=== PATIENT | male | born 1980 | race African-American/Black ===

== ENCOUNTER 2016-12-05 07:24 | Emergency (ER) | payer MEDICAID ==
[2016-12-05] MEDS ORDERED: NITROGLYCERIN SL TABS 0.4 MG TAB SUBLINGUAL STA (07:48)
--- NOTE | 2016-12-05 07:55 | ED ---
Chest Pain HPI - General Chief Complaint: Chest Pain Stated Complaint: chest pain,dizzy Time Seen by Provider: 12/05/16 07:34 Source: patient, RN notes reviewed Mode of arrival: wheelchair Limitations: no limitations - History of Present Illness Initial Comments: This is a 36-year-old male with a history of hypertension and migraine headaches and he was younger who states he had the onset while at work was at around 8 PM of some chest pain and left-sided with crampy in his left arm. He also has some slight dizziness and also had a headache behind his left eye. He states pain is currently 3/10 severity nothing makes it better nothing makes it worse she's not had pain like that before. He isn't any fevers chills cough or other symptoms he is a smoker. He has no personal history of heart disease and no family history of early heart disease. MD Complaint: chest pain - Related Data Previous Rx's Medication Instructions Recorded Azithromycin [Zithromax Z-pack] 250 mg PO DIRECTED #6 tab 12/05/16 Ibuprofen [Motrin] 800 mg PO Q6HR PRN #20 tab 12/05/16 Allergies Allergy/AdvReac Type Severity Reaction Status Date / Time aspirin Allergy Anaphylaxis Verified 12/05/16 08:01 chocolate flavor Allergy Rash/Hives Verified 12/05/16 08:01 Review of Systems ROS Statement: Those systems with pertinent positive or pertinent negative responses have been documented in the HPI. ROS Other: All systems not noted in ROS Statement are negative. EKG Findings - EKG Results: EKG: interpreted by ERMD, sinus rhythm (Sinus rhythm with a rate of 93. Arrival 166 QRS duration 80 QT/QTC of 320/407 this is compared with one done last night on the floor at 12:15 AM this appears be a normal EKG.), normal axis , normal QRS, normal ST/T, no acute changes Past Medical History Past Medical History: Asthma, Hypertension Additional Past Medical History / Comment(s): "past epilipsy" History of Any Multi-Drug Resistant Organisms: None Reported Past Surgical History: Appendectomy, Orthopedic Surgery Past Psychological History: No Psychological Hx Reported Smoking Status: Current every day smoker Past Alcohol Use History: Rare Past Drug Use History: None Reported General Exam - General Exam Comments Initial Comments: This is a well-developed well-nourished awake alert oriented 3 male Limitations: no limitations General appearance: alert, in no apparent distress Head exam: Present: atraumatic, normocephalic, normal inspection Eye exam: Present: normal appearance, PERRL, EOMI. Absent: scleral icterus, conjunctival injection, periorbital swelling ENT exam: Present: normal exam, mucous membranes moist Neck exam: Present: normal inspection. Absent: tenderness, meningismus, lymphadenopathy Respiratory exam: Present: normal lung sounds bilaterally. Absent: respiratory distress, wheezes, rales, rhonchi, stridor Cardiovascular Exam: Present: regular rate, normal rhythm, normal heart sounds. Absent: systolic murmur, diastolic murmur, rubs, gallop, clicks GI/Abdominal exam: Present: soft, normal bowel sounds. Absent: distended, tenderness, guarding, rebound, rigid Extremities exam: Present: normal inspection, full ROM, normal capillary refill. Absent: tenderness, pedal edema, joint swelling, calf tenderness Back exam: Present: normal inspection Neurological exam: Present: alert, oriented X3, CN II-XII intact Psychiatric exam: Present: normal affect, normal mood Skin exam: Present: warm, dry, intact, normal color. Absent: rash Course Vital Signs 12/05/16 12/05/16 12/05/16 07:27 08:21 08:27 Temperature 98.3 F Pulse Rate 100 94 92 Respiratory 20 18 18 Rate Blood Pressure 139/80 119/69 121/72 O2 Sat by Pulse 99 100 96 Oximetry 12/05/16 12/05/16 09:09 09:53 Temperature 99.3 F 97.9 F Pulse Rate 82 86 Respiratory 16 18 Rate Blood Pressure 122/78 124/77 O2 Sat by Pulse 98 99 Oximetry - Reevaluation(s) Reevaluation #1: 12/05/16 09:56 Did discuss smoking cessation and need to quit in the risk factors this lasted 3.2 minutes Chest Pain MDM - MDM I did review the x-ray shows evidence a left upper lobe infiltrate. Patient is feeling improved I did discuss [employer] him presentation is consistent with atypical chest pain secondary to his pneumonia. Patient be discharged on his cardiac Disposition Clinical Impression: Left upper lobe pneumonia, Atypical chest pain Disposition: HOME SELF-CARE Condition: Good Instructions: Chest Pain (ED), Bacterial Pneumonia (ED) Prescriptions: Azithromycin [Zithromax Z-pack] 250 mg PO DIRECTED #6 tab Ibuprofen [Motrin] 800 mg PO Q6HR PRN #20 tab PRN Reason: Pain
[2016-12-05 08:01] LABS: Basophils # (A) 0.1 k/uL (0-0.2); Basophils % (A) 1 %; CH 26.4; CHCM 33.4; Eosinophils # (A) 0.1 k/uL (0-0.7); Eosinophils % (A) 2 %; HCT 46.2 % (39.0-53.0); HDW 2.64; HGB 15.2 gm/dL (13.0-17.5); Luc # (Auto) 0.26; Luc % (Auto) 4; Lymphocytes # (A) 1.1 k/uL (1.0-4.8); Lymphocytes % (A) 17 %; MCH 26.1 pg (25.0-35.0); MCHC 32.9 g/dL (31.0-37.0); MCV 79.5 fL (80.0-100.0); Mean Platelet Volume 8.2; Monocytes # (A) 0.6 k/uL (0-1.0); Monocytes % (A) 10 %; Neutrophils # (A) 4.2 k/uL (1.3-7.7); Neutrophils % (A) 66 %; RBC 5.81 m/uL (4.30-5.90); RDW 12.8 % (11.5-15.5); WBC 6.3 k/uL (3.8-10.6); WBC (Perox) 6.35
--- NOTE | 2016-12-05 08:05 | XR ---
EXAMINATION TYPE: XR chest 2V DATE OF EXAM: 12/05/2016 8:01 AM HISTORY: Chest Pain. REFERENCE: NONE. FINDINGS: There is perihilar infiltrate in the left upper lobe. The lungs are otherwise clear. Pleura l spaces are clear. Heart size is normal. IMPRESSION: LEFT UPPER LOBE PNEUMONIA.
[2016-12-05 08:11] LABS: ALT 83 U/L (21-72); AST 43 U/L (17-59); Alkaline Phosphatase 73 U/L (38-126); Amylase 48 U/L (30-110); Anion Gap 14 mmol/L; Blood Urea Nitrogen 15 mg/dL (9-20); Calcium 9.8 mg/dL (8.4-10.2); Carbon Dioxide 28 mmol/L (22-30); Chloride 99 mmol/L (98-107); Glucose 103 mg/dL (74-99); Magnesium 1.8 mg/dL (1.6-2.3); Non-African American GFR(MDRD) >60 (>60 ml/min/1.73 sqM); Potassium 4.6 mmol/L (3.5-5.1); Sodium 141 mmol/L (137-145); Total Bilirubin 0.8 mg/dL (0.2-1.3); Total Protein 7.9 g/dL (6.3-8.2)
[2016-12-05 08:17] LABS: INR 1.1 (<1.1); Partial Thromboplastin Time 25.9 sec (22.0-30.0)
[2016-12-05 08:29] LABS: Creatine Kinase 349 U/L (55-170)
[2016-12-05 08:41] LABS: Creatine Kinase MB 0.9 ng/mL (0.0-2.4); Troponin I <0.012 ng/mL (0.000-0.034)
[2016-12-05] MEDS ORDERED: AZITHROMYCIN 500 MG TAB PO STA (09:50)
[2016-12-05 09:54] VITALS: BP 124/77; PULSE 86; RESP 18; TEMP 97.9
== END 2016-12-05 10:24 | disposition home or self-care (01) ==
LOC: EC 07:24
DX: J15.9 Unspecified bacterial pneumonia (principal); I10 Essential (primary) hypertension; J45.909 Unspecified asthma, uncomplicated; F17.200 Nicotine dependence, unspecified, uncomplicated; Z79.82 Long term (current) use of aspirin; Z88.6 Allergy status to analgesic agent; Z91.018 Allergy to other foods
CPT/HCPCS: 36415; 71020; 80053; 82150; 82550; 82553; 83690; 83735; 84484; 85025; 85379; 85610; 85730; 93005; 99285

== ENCOUNTER → 2020-07-04 | Outpatient (CLI) | payer MEDICAID ==
[2020-07-04 09:24] LABS: HCT 47.1 % (39.0-53.0); HGB 15.3 gm/dL (13.0-17.5); MCHC 32.6 g/dL (31.0-37.0); Mean Platelet Volume 8.9; Platelet Count 167 k/uL (150-450); RBC 5.67 m/uL (4.30-5.90); RDW 13.1 % (11.5-15.5); WBC 6.5 k/uL (3.8-10.6)
[2020-07-04 18:43] LABS: African American GFR (CKD) 110.2 (60.0-200.0); Albumin 4.5 g/dL (3.80-4.90); Albumin/Globulin Ratio 2.37 (1.60-3.17); Anion Gap 8.3 mmol/L (4.00-12.00); Calcium 9.2 mg/dL (8.7-10.3); Carbon Dioxide 22.7 mmol/L (21.6-31.8); Chol/HDL Ratio 4.39; Globulin 1.9 g/dL (1.6-3.3); Non-African American GFR(CKD) 95.1 (60.0-200.0); Potassium 4.4 mmol/L (3.5-5.5); Total Bilirubin 0.6 mg/dL (0.3-1.2); Total Protein 6.4 g/dL (6.2-8.2)
== END | disposition home or self-care (01) ==
LOC: LABWHC1 08:03
PROVIDERS: ATTEND Internal Medicine
DX: Z00.00 Encounter for general adult medical examination without abnormal findings (principal); Z13.21 Encounter for screening for nutritional disorder
CPT/HCPCS: 36415; 80053; 80061; 85027

== ENCOUNTER → 2022-09-29 | Outpatient (CLI) | payer MEDICAID ==
[2022-09-29 14:17] LABS: HCT 43.5 % (39.6-50.0); HGB 14.4 g/dL (13.0-17.0); MCH 25.7 pg (27.0-32.0); MCHC 33.1 g/dL (32.0-37.0); MCV 77.7 fL (80.0-97.0); Mean Platelet Volume 11.6 fL (9.5-12.2); NRBC Per 100 WBC 0 /100 WBCS (0.0-0.0); Platelet Count 163 X 10*3/uL (140-440); RDW 13.1 % (11.5-14.5); WBC 6.61 X 10*3/uL (4.50-10.00)
[2022-09-29 14:46] LABS: ALT 124 U/L (10-49); AST 60 U/L (14-35); African American GFR (CKD) 123.4 (60.0-200.0); Albumin 4.6 g/dL (3.8-4.9); Albumin/Globulin Ratio 2.19 (1.60-3.17); Alkaline Phosphatase 73 U/L (41-126); BUN/Creat Ratio 16.67 Ratio (12.00-20.00); Calcium 9.4 mg/dL (8.7-10.3); Carbon Dioxide 25.4 mmol/L (20.0-27.5); Chloride 101 mmol/L (96-109); Chol/HDL Ratio 5.12 Ratio; Globulin 2.1 g/dL (1.6-3.3); Glucose 107 mg/dL (70-110); LDL Cholesterol,Calculated 136.3 mg/dL (0.0-131.0); Non-African American GFR(CKD) 106.5 (60.0-200.0); Potassium 4.2 mmol/L (3.5-5.5); Sodium 137 mmol/L (135-145); Total Protein 6.7 g/dL (6.2-8.2)
== END | disposition home or self-care (01) ==
LOC: LABWHC1 07:43
PROVIDERS: ATTEND Nurse Practitioner Family
DX: Z13.220 Encounter for screening for lipoid disorders (principal); E66.9 Obesity, unspecified; E55.9 Vitamin D deficiency, unspecified; R73.01 Impaired fasting glucose
CPT/HCPCS: 36415; 80053; 80061; 82306; 83036; 84443; 85027

== ENCOUNTER → 2023-02-02 | Outpatient (CLI) | payer MEDICAID ==
[2023-02-02 10:58] LABS: Basophils # (A) 0.02 X 10*3/uL (0.00-0.10); Basophils % (A) 0.4 %; Eosinophils # (A) 0.15 X 10*3/uL (0.04-0.35); Eosinophils % (A) 2.7 %; HCT 45.6 % (39.6-50.0); HGB 14.5 g/dL (13.0-17.0); Immature Grans, Automated 0.4 %; Lymphocytes % (A) 32.1 %; MCH 25.9 pg (27.0-32.0); MCHC 31.8 g/dL (32.0-37.0); MCV 81.6 fL (80.0-97.0); Monocytes # (A) 0.48 X 10*3/uL (0.20-1.00); Monocytes % (A) 8.6 %; NRBC Per 100 WBC 0 /100 WBCS (0.0-0.0); Neutrophils # (A) 3.13 X 10*3/uL (1.80-7.70); Neutrophils % (A) 55.8 %; Platelet Count 162 X 10*3/uL (140-440); RBC 5.59 X 10*6/uL (4.40-5.60); RDW 13.3 % (11.5-14.5)
[2023-02-02 11:37] LABS: ALT 117 U/L (10-49); AST 49 U/L (14-35); African American GFR (CKD) 103.6 (60.0-200.0); Albumin 4.7 g/dL (3.8-4.9); Albumin/Globulin Ratio 2.24 (1.60-3.17); Alkaline Phosphatase 78 U/L (41-126); BUN/Creat Ratio 13.17 Ratio (12.00-20.00); Blood Urea Nitrogen 13.7 mg/dL (9.0-27.0); Calcium 9.6 mg/dL (8.7-10.3); Carbon Dioxide 24.1 mmol/L (20.0-27.5); Chloride 105 mmol/L (96-109); Chol/HDL Ratio 4.56 Ratio; Globulin 2.1 g/dL (1.6-3.3); Glucose 123 mg/dL (70-110); LDL Cholesterol,Calculated 132.1 mg/dL (0.0-131.0); Non-African American GFR(CKD) 89.4 (60.0-200.0); Potassium 4.4 mmol/L (3.5-5.5); Sodium 140 mmol/L (135-145); Total Protein 6.8 g/dL (6.2-8.2)
== END | disposition home or self-care (01) ==
LOC: LABWHC1 07:37
PROVIDERS: ATTEND Family Medicine
DX: E11.9 Type 2 diabetes mellitus without complications (principal); E78.5 Hyperlipidemia, unspecified; E66.9 Obesity, unspecified; E55.9 Vitamin D deficiency, unspecified; R74.8 Abnormal levels of other serum enzymes
CPT/HCPCS: 36415; 80053; 80061; 83036; 84439; 84443; 85025

== ENCOUNTER → 2023-03-03 | Outpatient (CLI) | payer MEDICAID ==
--- NOTE | 2023-03-03 15:26 | US ---
EXAMINATION TYPE: US abdomen limited DATE OF EXAM: 03/03/2023 COMPARISON: NONE CLINICAL INDICATION: Male, 42 years old with history of ELEVATED LIVER ENZYMES R94.5; TECHNIQUE: Multiple sonographic images of the right upper quadrant are obtained. FINDINGS: EXAM MEASUREMENTS: Liver Length: 15.4 cm Gallbladder Wall: 0.3 cm CBD: 0.5 cm Right Kidney: 11.9 X 4.4 X 5.0 cm Pancreas: Obscured by bowel gas Liver: Difficult to penetrate, diffusely echogenic parenchyma. No focal lesion seen. Gallbladder: No stones seen Evidence for sonographic Ballesteros's sign: No CBD: wnl Right Kidney: No hydronephrosis or masses seen IMPRESSION: 1. At least moderate hepatic steatosis. Correlate with LFTs, lipid profile, and patient risk factors. 2. No gallstones or biliary ductal dilatation.
== END | disposition home or self-care (01) ==
LOC: RADUSWWP 08:07
PROVIDERS: ATTEND Family Medicine
DX: K76.0 Fatty (change of) liver, not elsewhere classified (principal); R94.8 Abnormal results of function studies of other organs and systems
CPT/HCPCS: 76705

== ENCOUNTER → 2024-07-12 | Outpatient (CLI) | payer MEDICAID ==
[2024-07-12 15:09] LABS: HCT 47.9 % (39.6-50.0); HGB 15.8 g/dL (13.0-17.0); MCH 25.6 pg (27.0-32.0); MCV 77.8 FL (80.0-97.0); Mean Platelet Volume 11.5 FL (9.5-12.2); NRBC Per 100 WBC 0 X 10*3/uL (0.00-0.01); Platelet Count 166 X 10*3/uL (140-440); RBC 6.16 X 10*6/uL (4.40-5.60); RDW 13.2 % (11.5-14.5); WBC 5.76 X 10*3/uL (4.50-10.00)
[2024-07-12 15:48] LABS: ALT 101 U/L (10-49); AST 46 U/L (14-35); Albumin 4.6 g/dL (3.8-4.9); Albumin/Globulin Ratio 1.77 Ratio (1.60-3.17); Alkaline Phosphatase 91 U/L (41-126); Blood Urea Nitrogen 14.6 mg/dL (9.0-27.0); Calcium 9.3 mg/dL (8.7-10.3); Carbon Dioxide 21.9 mmol/L (21.6-31.8); Chloride 104 mmol/L (96-109); Globulin 2.6 g/dL (1.6-3.3); Glucose 155 mg/dL (70-110); Potassium 4.3 mmol/L (3.5-5.5); Sodium 139 mmol/L (135-145); Total Bilirubin 0.7 mg/dL (0.3-1.2); Total Protein 7.2 g/dL (6.2-8.2)
== END | disposition home or self-care (01) ==
LOC: LABWHC1 08:17
PROVIDERS: ATTEND Family Medicine
CPT/HCPCS: 36415; 80053; 80061; 83036; 84443; 85027

== ENCOUNTER → 2024-12-27 | Outpatient (CLI) | payer MEDICAID ==
[2024-12-27 15:35] LABS: ALT 152 U/L (10-49); AST 67 U/L (14-35); Albumin 4.6 g/dL (3.8-4.9); Albumin/Globulin Ratio 1.84 Ratio (1.60-3.17); Alkaline Phosphatase 99 U/L (41-126); Blood Urea Nitrogen 13.6 mg/dL (9.0-27.0); Calcium 9.6 mg/dL (8.7-10.3); Carbon Dioxide 22.4 mmol/L (21.6-31.8); Chloride 103 mmol/L (96-109); Chol/HDL Ratio 4.38 Ratio; Globulin 2.5 g/dL (1.6-3.3); Glucose 152 mg/dL (70-110); LDL Cholesterol,Calculated 121.8 mg/dL (0.0-131.0); Potassium 4.2 mmol/L (3.5-5.5); Sodium 138 mmol/L (135-145); Total Bilirubin 0.3 mg/dL (0.3-1.2); Total Protein 7.1 g/dL (6.2-8.2)
[2024-12-27 15:51] LABS: Basophils # (A) 0.02 X 10*3/uL (0.00-0.10); Basophils % (A) 0.4 %; Eosinophils # (A) 0.12 X 10*3/uL (0.04-0.35); Eosinophils % (A) 2.4 %; HCT 47.2 % (39.6-50.0); Lymphocytes # (A) 1.59 X 10*3/uL (0.90-5.00); Lymphocytes % (A) 31.2 %; MCH 25.6 pg (27.0-32.0); MCHC 31.8 g/dL (32.0-37.0); MCV 80.7 FL (80.0-97.0); Mean Platelet Volume 12.6 FL (9.5-12.2); Monocytes # (A) 0.37 X 10*3/uL (0.20-1.00); Monocytes % (A) 7.3 %; NRBC Per 100 WBC 0 X 10*3/uL (0.00-0.01); Neutrophils # (A) 2.98 X 10*3/uL (1.80-7.70); Neutrophils % (A) 58.3 %; Platelet Count 141 X 10*3/uL (140-440); RBC 5.85 X 10*6/uL (4.40-5.60); RDW 13.3 % (11.5-14.5)
[2024-12-27 18:46] LABS: Microalbumin Creatinine Ratio <12 mg/g Cr (0-30)
== END | disposition home or self-care (01) ==
LOC: LABWHC1 09:31
PROVIDERS: ATTEND Nurse Practitioner Family
DX: E11.9 Type 2 diabetes mellitus without complications (principal); E78.5 Hyperlipidemia, unspecified
CPT/HCPCS: 36415; 80053; 80061; 82043; 82570; 83036; 84443; 85025

== ENCOUNTER → 2025-04-26 | Outpatient (CLI) | payer MEDICAID ==
[2025-04-26 15:36] LABS: HCT 45.2 % (39.6-50.0); HGB 14.5 g/dL (13.0-17.0); MCH 25.5 pg (27.0-32.0); MCHC 32.1 g/dL (32.0-37.0); MCV 79.6 FL (80.0-97.0); NRBC Per 100 WBC 0 X 10*3/uL (0.00-0.01); Platelet Count 184 X 10*3/uL (140-440); RBC 5.68 X 10*6/uL (4.40-5.60); RDW 13.9 % (11.5-14.5); WBC 6.93 X 10*3/uL (4.50-10.00)
[2025-04-26 15:49] LABS: ALT 84 U/L (10-49); AST 47 U/L (14-35); Albumin 5.1 g/dL (3.8-4.9); Albumin/Globulin Ratio 2.55 Ratio (1.60-3.17); Alkaline Phosphatase 86 U/L (41-126); Anion Gap 14.30 mmol/L (4.00-12.00); BUN/Creat Ratio 6.73 Ratio (12.00-20.00); Blood Urea Nitrogen 7.4 mg/dL (9.0-27.0); Calcium 9.7 mg/dL (8.7-10.3); Carbon Dioxide 22.7 mmol/L (21.6-31.8); Chloride 103 mmol/L (96-109); Cholesterol 189.00 mg/dL (0.00-200.00); Globulin 2.0 g/dL (1.6-3.3); Glucose 129 mg/dL (70-110); HDL Cholesterol 50.30 mg/dL (40.00-60.00); LDL Cholesterol,Calculated 112.5 mg/dL (0.0-131.0); Potassium 4.0 mmol/L (3.5-5.5); Sodium 140 mmol/L (135-145); Total Protein 7.1 g/dL (6.2-8.2); Triglycerides 131.00 mg/dL (0.00-149.00); VLDL Calculation 26.20 mg/dL (5.00-40.00)
== END | disposition home or self-care (01) ==
LOC: LABWHC1 08:49
PROVIDERS: ATTEND Nurse Practitioner Family
DX: E78.5 Hyperlipidemia, unspecified (principal); E11.65 Type 2 diabetes mellitus with hyperglycemia; K75.81 Nonalcoholic steatohepatitis (NASH)
CPT/HCPCS: 36415; 80053; 80061; 82043; 82570; 83036; 84443; 85027